=== PATIENT | female | born 1955 | race Caucasian/White ===

== ENCOUNTER 2016-11-22 05:52 | Day surgery (SDC) | payer OTHER ==
[~2016-11-22] VITALS: Ht 162.6 cm; Wt 61.0 kg
[2016-11-22] VITALS (10 sets, daily range): BP systolic 132–150; BP diastolic 65–75; PULSE 65–79; RESP 10–17; O2SAT 98–100
[~2016-11-22 05:52] MED LIST: FENT1PAT11 TRANSDERM; LEVO100T6 PO; LOV80 SUBQ; Lactated Ringer's 1,000 ML IV SCH; ONDA4TAB9 PO; OXYC-466 PO; PANT40TA3 PO; PROM25SU46 RC
[2016-11-22] MEDS ORDERED: Dexamethasone 4 mg/mL Inj ONE (05:53)
[2016-11-22] MEDS ORDERED: fentaNYL-PF 50 mCg/mL 2 mL Inj ONE (05:53)
[2016-11-22] MEDS ORDERED: Ketamine 10 mg/mL 20 mL Inj ONE (05:53)
[2016-11-22] MEDS ORDERED: Propofol 10,000 mCg/mL 20 mL Inj ONE (05:53)
[2016-11-22] MEDS ORDERED: Ondansetron 2 mg/mL 2 mL Inj ONE (05:53)
[2016-11-22] MEDS ORDERED: EPHEDrine/NS 5 mg/mL 5 mL Syringe ONE (05:53)
[2016-11-22] MEDS ORDERED: Lactated Ringer's 1,000 ML IV ONE (06:52)
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
[2016-11-22] MEDS ORDERED: Lactated Ringer's 1,000 ML IV SCH (08:16)
[2016-11-22] MEDS ORDERED: Lactated Ringer's 500 ML IV PRN (08:16)
[2016-11-22] MEDS ORDERED: Ondansetron 2 mg/mL 2 mL Inj IVPUSH PRN (08:20)
[2016-11-22] MEDS ORDERED: Atropine 0.4 mg/mL Inj IVPUSH PRN (08:20)
[2016-11-22] MEDS ORDERED: fentaNYL-PF 50 mCg/mL 2 mL Inj IVPUSH PRN (08:20)
[2016-11-22] MEDS ORDERED: EPHEDrine Sulfate 50 mg/mL Inj IM PRN (08:20)
[2016-11-22] MEDS ORDERED: Phenylephrine 10,000 mCg/mL Inj IVPUSH PRN (08:20)
[2016-11-22] MEDS ORDERED: HYDROmorphone 1 mg/mL Inj IVPUSH PRN (08:20)
[2016-11-22] MEDS ORDERED: EPHEDrine Sulfate 50 mg/mL Inj IVPUSH PRN (08:20)
[2016-11-22] MEDS ORDERED: HYDROcodone-APAP 5-325 mg Tablet PO PRN (08:35)
[2016-11-22] MEDS ORDERED: Bupivacaine-MPF 0.5% W/EPI 30 mL Inj INFILTRATE ONE (08:49)
--- NOTE | 2016-11-22 09:22 | OP ---
[address] [address] OPERATIVE REPORT PATIENT: ISSA MUSTAFA : 1955 MR#: [id number] ADMIT: 11/22/2016 JOB ID: [id number] DATE OF SURGERY: 11/22/2016 ANESTHESIA: General. PREOPERATIVE DIAGNOSIS(ES): History of endometrial cancer with a new left axillary lymphadenopathy. POSTOPERATIVE DIAGNOSIS(ES): OPERATION: Left deep axillary lymph node excisional biopsy. SURGEON: Narendra Cadet MD BINDER CUTTER HAND: 1. Macie Francis PA-C (The behavioral assistant was required for the sake of time and completion of the case). 2. Golden Ag MS3. COMPLICATIONS: None. ESTIMATED BLOOD LOSS: Minimal. CONDITION: Satisfactory. SPECIMEN: Left axilla lymph node. FINDINGS: An enlarged firm node was easily identified and removed. INDICATION/SIGNIFICANT HISTORY: The patient is a 61-year-old female with a history of endometrial cancer that was first diagnosed in early 2013. She subsequently developed diffuse metastatic disease. She has demonstrated disease improvement on recent PET-CT after beginning immunotherapy. However, there was progressive lymphadenopathy in the left axilla with activity on PET-CT. Therefore, decision was made to biopsy those concerning those in the left axilla. OPERATIVE TECHNIQUE: The patient was taken to the operating room and placed in supine position. General anesthesia was administered. The left arm and axilla was prepped and draped in standard surgical fashion. A procedure pause performed. Local anesthetic was injected. I then made a transverse incision just below the hair-bearing region of the left axilla. Dissection was carried down through skin and subcutaneous tissue, and the fascia opened into the left deep axilla. I was easily able to palpate a couple of enlarged nodes. The most superficial of these was grasped and removed using a LigaSure device. Hemostasis was noted. The fascia was then closed with interrupted 3-0 Vicryl followed by a running 4-0 Monocryl to close the skin. Dermabond was applied. The entire procedure was well tolerated without apparent complication.
--- NOTE | 2016-11-22 10:39 | PCM.ANEP1 ---
Post Anesthesia Phase 1 PACU Phase 1 Assessment Date of Service: Nov 22, 2016 Vital Signs Vital Signs Date Time Temp Pulse Resp B/P Pulse Ox O2 Delivery O2 Flow Rate FiO2 11/22/16 10:13 66 16 150/75 98 Room Air 11/22/16 10:00 70 13 135/66 99 Room Air 11/22/16 09:55 36.7 70 12 135/66 100 Nasal Cannula 2 11/22/16 09:40 71 10 146/68 100 Nasal Cannula 2 11/22/16 09:35 70 10 139/74 100 Nasal Cannula 2 11/22/16 09:30 70 10 144/65 100 Nasal Cannula 2 11/22/16 09:25 72 10 140/67 100 Nasal Cannula 2 11/22/16 09:20 36.4 79 10 147/69 100 Nasal Cannula 4 11/22/16 09:18 78 10 146/75 100 Nasal Cannula 4 11/22/16 06:54 35.6 65 17 132/75 98 Room Air Anesthetic Administered: GA Level of Alertness: Sleepy, easy to arouse MOREL's with Equal Strength: Yes Pain: Yes Nausea or Vomiting: No Oxygen Delivery: Simple Mask Lungs: Clear to Auscultation, Normal Air Movement Dermatome Level: Full Sensation Christian Luo MD Nov 22, 2016 10:39
--- NOTE | 2016-11-22 14:58 | PCM.ANEP2 ---
Post Anesthesia Evaluation ASA/CMS Post Anesthesia Date of Service: Nov 22, 2016 VS in Patient's Normal Range?: Yes Resp Stable; Airway Patent?: Yes CV Function & Hydration Stable: Yes Mental Status Recovered?: Yes Pain control Satisfactory?: Yes N/V Control Satisfactory?: Yes Christian Luo MD Nov 22, 2016 14:58
[2016-12-13] MEDS ORDERED: [UNRECOGNIZED DRUG - REMARK] (12:18)
== END 2016-11-22 23:59 | disposition home or self-care (01) ==
LOC: SAS 05:52
PROVIDERS: ATTEND General Practice
DX: C77.3 Secondary and unspecified malignant neoplasm of axilla and upper limb lymph nodes (principal); R13.10 Dysphagia, unspecified; R60.9 Edema, unspecified; R42 Dizziness and giddiness; F41.9 Anxiety disorder, unspecified; Z79.899 Other long term (current) drug therapy
CPT/HCPCS: 38745; 88305; 88341; 88342; J1100; J2405; J3010; J7120